=== PATIENT | male | born 1980 | race Caucasian/White ===

== ENCOUNTER 2017-02-07 03:10 | Emergency (ER) | payer BC ==
[2017-02-07 03:39] VITALS: O2SAT 100
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
[2017-02-07 04:44] VITALS: BP 151/79; PULSE 78
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
== END 2017-02-07 04:46 | disposition home or self-care (01) ==
LOC: ED 03:10
DX: M54.2 Cervicalgia (principal); R51 Headache; V48.5XXA Car driver injured in noncollision transport accident in traffic accident, initial encounter
CPT/HCPCS: 70450; 72125; 99284